=== PATIENT | female | born 1970 | race Caucasian/White ===

== ENCOUNTER 2016-08-18 07:18 | Day surgery (SDC) | payer OTHER ==
[2016-08-18] MEDS ORDERED: NALOXONE HCL 0.4 MG/ML INJ ONE (07:41)
[2016-08-18] MEDS ORDERED: MIDAZOLAM 2 MG/2 ML VIAL ONE (07:41)
[2016-08-18] MEDS ORDERED: fentaNYL 100 MCG/2 ML INJ ONE (07:41)
[2016-08-18] MEDS ORDERED: FLUMAZENIL 0.5 MG/5 ML MDV IVP ONE (07:42)
[2016-08-18] MEDS ORDERED: ONDANSETRON 4 MG/2 ML VIAL ONE (08:16)
--- NOTE | 2016-08-18 10:08 | US ---
Ultrasound-Guided Liver Biopsy With Intravenous Moderate Sedation at 0843 hours History: Breast carcinoma with new hepatic masses. Comparison: CT August 11, 2016. Witnessed Consent: Witnessed informed consent was obtained after the risks, benefits, and alternative s of ultrasound guided liver biopsy and intravenous moderate sedation were explained to the patient a nd all questions were answered. Timeout performed. Intravenous moderate sedation: After witnessed informed consent was obtained, Versed 3 mg and fentany l 150 mcg were administered intravenously for conscious sedation, over 36 minutes, 1482-0254 hours un nicole monitoring by the nurse and myself. Procedure: Utilizing sterile technique and ultrasound guidance the right lobe of the liver intercosta l region was identified for biopsy. Skin was prepped with ChloraPrep solution. Lidocaine with bicarbo tex was used as local anesthesia. Via an intercostal approach, a 19-gauge coaxial needle was advance d into the right lobe of the liver. A 20-gauge biopsy gun was advanced coaxially into the right lobe of liver and 4 biopsy specimens were obtained. Ezel were removed. Manual hemostasis was achieved. Post procedure imaging demonstrates no hematoma. Patient tolerated the procedure well without immedia te complications. Patient was sent to Recovery for monitoring. Postprocedure discharge instructions w ere given. Cytopath present and sufficient sample stated. Specimens were sent to Pathology for doretha sis. EBL: NONE Impression: 1. Successful ultrasound-guided liver biopsy. 2. Please see pathology report which is pending. Crosscutting Measure #226: Current tobacco user: No.
[2016-08-18] MEDS ORDERED: NS 1,000 ML IV SCH (11:45)
[2016-08-22 15:14] LABS: ACCESSION # HR17-6517 (()); INTERPRETATION See Comments (())
[2016-08-28 15:43] LABS: FIXATIVE Formalin; HER2 FISH DISCLAIMER See Comments; HER2 FISH INTERPRETATION See Comments; HER2 FISH RESULT SUMMARY Negative; HER2 FISH TISSUE ID 17S-411-A2
== END 2016-08-18 12:50 | disposition home or self-care (01) ==
LOC: FIMAGING 07:18
PROVIDERS: ATTEND Internal Medicine Hematology & Oncology
PROC: 0FB03ZX Excision of Liver, Percutaneous Approach, Diagnostic (ICD-10-PCS; principal; 2016-08-18 09:37)
DX: C78.7 Secondary malignant neoplasm of liver and intrahepatic bile duct (principal); Z85.3 Personal history of malignant neoplasm of breast; Z80.3 Family history of malignant neoplasm of breast; Z80.0 Family history of malignant neoplasm of digestive organs; Z90.11 Acquired absence of right breast and nipple
CPT/HCPCS: J2250; J2310; J2405; J3010

== ENCOUNTER → 2016-09-02 | Outpatient (CLI) | payer OTHER | LOC: FIMAGING 09:27 | PROVIDERS: ATTEND Internal Medicine Hematology & Oncology | DX: C50.511 Malignant neoplasm of lower-outer quadrant of right female breast (principal); C79.51 Secondary malignant neoplasm of bone | CPT/HCPCS: 78306; A9503 ==

== ENCOUNTER → 2016-10-03 | Outpatient (CLI) | payer OTHER ==
[~2016-10-03] MED LIST: GADOBUTROL 10 ML VIAL IVP ONE
== END ==
LOC: FIMAGING 16:35
PROVIDERS: ATTEND Internal Medicine Hematology & Oncology
DX: R11.2 Nausea with vomiting, unspecified (principal); Z85.3 Personal history of malignant neoplasm of breast
CPT/HCPCS: A9585

== ENCOUNTER → 2016-10-29 | Outpatient (CLI) | payer OTHER ==
[~2016-10-29] MED LIST changes: -GADOBUTROL 10 ML VIAL IVP ONE; +IOPAMIDOL (ISOVUE-300) 100 ML BTL IV ONE
== END ==
LOC: FIMAGING 14:49
PROVIDERS: ATTEND Internal Medicine Hematology & Oncology
DX: C78.7 Secondary malignant neoplasm of liver and intrahepatic bile duct (principal); Z90.11 Acquired absence of right breast and nipple; Z85.3 Personal history of malignant neoplasm of breast
CPT/HCPCS: Q9967

== ENCOUNTER → 2016-11-25 | Outpatient (CLI) | payer OTHER | LOC: FIMAGING 07:48 | PROVIDERS: ATTEND Internal Medicine Hematology & Oncology | DX: C50.511 Malignant neoplasm of lower-outer quadrant of right female breast (principal) | CPT/HCPCS: 78306; A9503 ==

== ENCOUNTER → 2017-02-16 | Outpatient (CLI) | payer OTHER | LOC: FIMAGING 08:49 | PROVIDERS: ATTEND Internal Medicine Hematology & Oncology | DX: Z08 Encounter for follow-up examination after completed treatment for malignant neoplasm (principal); C79.51 Secondary malignant neoplasm of bone; C50.911 Malignant neoplasm of unspecified site of right female breast | CPT/HCPCS: 78306; A9503 ==

== ENCOUNTER → 2017-03-03 | Outpatient (CLI) | payer OTHER ==
[~2017-03-03] MED LIST changes: -IOPAMIDOL (ISOVUE-300) 100 ML BTL IV ONE; +IOPAMIDOL (ISOVUE-300) 100 ML BTL ONE
== END ==
LOC: FIMAGING 15:42
PROVIDERS: ATTEND Internal Medicine Hematology & Oncology
DX: K76.9 Liver disease, unspecified (principal); C50.511 Malignant neoplasm of lower-outer quadrant of right female breast
CPT/HCPCS: Q9967

== ENCOUNTER → 2017-03-30 | Outpatient (CLI) | payer OTHER ==
[~2017-03-30] MED LIST changes: +GADOBUTROL 10 ML VIAL IVP ONE; -IOPAMIDOL (ISOVUE-300) 100 ML BTL ONE
== END ==
LOC: FIMAGING 19:39
PROVIDERS: ATTEND Internal Medicine Hematology & Oncology
DX: G93.9 Disorder of brain, unspecified (principal); C50.511 Malignant neoplasm of lower-outer quadrant of right female breast
CPT/HCPCS: A9585